=== PATIENT | male | born 1945 | race Caucasian/White ===

== ENCOUNTER 2017-05-31 18:18 | Emergency (ER) | payer MEDICARE, MEDICAID ==
[~2017-05-31] VITALS: Ht 190.5 cm; Wt 155.0 kg
[2017-05-31 18:25] VITALS: BP 172/99; PULSE 94; RESP 18; O2SAT 99
[2017-05-31 18:27] VITALS: TEMP 98.2; O2SAT 97
[2017-05-31 18:29] VITALS: O2SAT 97
--- NOTE | 2017-05-31 18:34 | PD ---
HPI Chief Complaint: Chest Pain Time Seen by Provider: 18:27 Travel History International Travel<30 days: No Contact w/Intl Traveler<30days: No History of Present Illness HPI 71-year-old male complains of chest pain and shortness of breath. Patient states that the symptoms started yesterday. Patient states the pain is substernal chest pressure without radiation. Patient denies palpitation nausea diaphoresis. Patient denies any coughing congestion fever chills. Patient states that he has increasing low Stram is a swelling recently. Patient has history of CHF. Patient has history hypertension, diabetes, hyperlipidemia. Patient is a nonsmoker. Patient status post VT in the past. Patient states that he has not taken any medication for the past month. Patient denies any headache. Patient denies any visual change. Patient denies any neck pain. Patient denies any abdominal pain. Patient denies any nausea vomiting diarrhea. Patient denies any fever chills. PFSH Social History Tobacco Use: No Allergies-Medications (Allergen,Severity, Reaction): Coded Allergies: nitroglycerin (Verified Allergy, Severe, 05/31/17) Reported Meds & Prescriptions Reported Meds & Active Scripts Active Active Prescriptions or Reported Medications Unobtainable Review of Systems General / Constitutional: No: Fever Eyes: No: Visual changes HENT: No: Headaches Cardiovascular: Positive: Chest Pain or Discomfort Respiratory: Positive: Shortness of Breath Gastrointestinal: No: Abdominal Pain Genitourinary: No: Dysuria Musculoskeletal: No: Pain Skin: No Rash Neurologic: No: Weakness Psychiatric: No: Depression Endocrine: No: Polydipsia Hematologic/Lymphatic: No: Easy Bruising Physical Exam Narrative GENERAL: Well-nourished, well-developed patient. SKIN: Focused skin assessment warm/dry. HEAD: Normocephalic. EYES: No scleral icterus. No injection or drainage. NECK: Supple, trachea midline. No JVD or lymphadenopathy. CARDIOVASCULAR: Regular rate and rhythm without murmurs, gallops, or rubs. RESPIRATORY: Breath sounds equal bilaterally. No accessory muscle use. Patient has mild rhonchi at the bases. GASTROINTESTINAL: Abdomen soft, non-tender, nondistended. MUSCULOSKELETAL: No cyanosis. Patient had +2 to +3 pitting edema lower extremity. BACK: Nontender without obvious deformity. No CVA tenderness. neurologic exam normal. Data Data Last Documented VS Vital Signs Date Time Temp Pulse Resp B/P (MAP) Pulse Ox O2 Delivery O2 Flow Rate FiO2 05/31/17 18:29 97 Nasal Cannula 2.00 05/31/17 18: 98.2 05/31/17 18:25 94 18 172/99 (123) Orders Orders Electrocardiogram (05/31/17 18:27) Complete Blood Count With Diff (05/31/17 18:) Comprehensive Metabolic Panel (05/31/17 18) Creatine Kinase (Cpk) (05/31/17 18) Troponin I (05/31/17) B-Type Natriuretic Peptide (05/31/17 18) Prothrombin Time / Inr (Pt) (05/31/17) Act Partial Throm Time (Ptt) (05/31/17) Urinalysis - C+S If Indicated (05/31/17 18) Thyroid Stimulating Hormone (05/31/17 18:) Chest, Single Ap (05/31/17 18:) Iv Access Insert/Monitor (05/31/17) Ecg Monitoring (05/31/17 18:) Oximetry (05/31/17 18:27) Ed Discharge Order (05/31/17 19:46) Urine Culture (05/31/17 19:15) Labs Laboratory Tests Test 05/31/17 18:32 05/31/17 19:15 White Blood Count 4.4 TH/MM3 Red Blood Count 4.83 MIL/MM3 Hemoglobin 14.5 GM/DL Hematocrit 42.3 % Mean Corpuscular Volume 87.4 FL Mean Corpuscular Hemoglobin 30.0 PG Mean Corpuscular Hemoglobin Concent 34.3 % Red Cell Distribution Width 13.5 % Platelet Count 117 TH/MM3 Mean Platelet Volume 9.4 FL Neutrophils (%) (Auto) 60.8 % Lymphocytes (%) (Auto) 25.8 % Monocytes (%) (Auto) 8.4 % Eosinophils (%) (Auto) 4.0 % Basophils (%) (Auto) 1.0 % Neutrophils # (Auto) 2.7 TH/MM3 Lymphocytes # (Auto) 1.1 TH/MM3 Monocytes # (Auto) 0.4 TH/MM3 Eosinophils # (Auto) 0.2 TH/MM3 Basophils # (Auto) 0.0 TH/MM3 CBC Comment DIFF FINAL Differential Comment Prothrombin Time 10.5 SEC Prothromb Time International Ratio 1.0 RATIO Activated Partial Thromboplast Time 25.9 SEC Blood Urea Nitrogen 12 MG/DL Creatinine 1.34 MG/DL Random Glucose 343 MG/DL Total Protein 7.3 GM/DL Albumin 3.1 GM/DL Calcium Level 8.2 MG/DL Alkaline Phosphatase 176 U/L Aspartate Amino Transf (AST/SGOT) 22 U/L Alanine Aminotransferase (ALT/SGPT) 25 U/L Total Bilirubin 0.6 MG/DL Sodium Level 135 MEQ/L Potassium Level 3.8 MEQ/L Chloride Level 102 MEQ/L Carbon Dioxide Level 26.8 MEQ/L Anion Gap 6 MEQ/L Estimat Glomerular Filtration Rate 53 ML/MIN Total Creatine Kinase 46 U/L Troponin I LESS THAN 0.02 NG/ML B-Type Natriuretic Peptide 33 PG/ML Thyroid Stimulating Hormone 3rd Gen 3.200 uIU/ML Urine Color YELLOW Urine Turbidity CLEAR Urine pH 5.0 Urine Specific [place] 1.031 Urine Protein NEG mg/dL Urine Glucose (UA) 1000 mg/dL Urine Ketones NEG mg/dL Urine Occult Blood NEG Urine Nitrite NEG Urine Bilirubin NEG Urine Urobilinogen LESS THAN 2.0 MG/DL Urine Leukocyte Esterase LARGE Urine RBC 0-3 /hpf Urine WBC 6-8 /hpf Urine Squamous Epithelial Cells 0-5 /hpf Urine Bacteria MANY /hpf Microscopic Urinalysis Comment CULTURE INDICATED MDM Medical Decision Making Medical Screen Exam Complete: Yes Emergency Medical Condition: Yes Differential Diagnosis Differential diagnosis including angina, VT, PE, pneumothorax, acute exacerbation CHF. Narrative Course 71-year-old male with chest pain and shortness of breath. History VT and CHF. Patient has not taken his medications for the past month. Scripts Unable to Obtain Active Prescriptions or Reported Meds Jarret Guerrero MD May 31, 2017 18:34
[2017-05-31 18:49] LABS: AUTOMATED NEUTROPHIL # 2.7 TH/MM3 (1.8-7.7); EOSINOPHIL # 0.2 TH/MM3 (0-0.4); HEMATOCRIT 42.3 % (39.0-51.0); HEMO FLAGS DIFF FINAL; LYMPH % 25.8 % (9.0-44.0); LYMPHOCYTE # 1.1 TH/MM3 (1.0-4.8); MEAN CELL VOLUME 87.4 FL (80.0-100.0); MEAN CORPUSCULAR HGB CONC 34.3 % (32.0-36.0); MONO % 8.4 % (0.0-8.0); NEUT % 60.8 % (16.0-70.0); PLATELET COUNT 117 TH/MM3 (150-450); RED BLOOD COUNT 4.83 MIL/MM3 (4.50-5.90); RED CELL DISTRIBUTION WIDTH 13.5 % (11.6-17.2); WHITE BLOOD COUNT 4.4 TH/MM3 (4.0-11.0)
--- NOTE | 2017-05-31 18:54 | RADRPT ---
EXAM DATE/TIME: 05/31/2017 18:36 [facility] COMPARISON: No previous studies available for comparison. INDICATIONS : Shortness of breath. MEDICAL HISTORY : None. SURGICAL HISTORY : None. ENCOUNTER: Initial ACUITY: 1 day PAIN SCORE: 0/10 LOCATION: Bilateral chest FINDINGS: A single view of the chest demonstrates the lungs to be symmetrically aerated without evidence of mas s, infiltrate or effusion. The cardiomediastinal contours are unremarkable. Osseous structures are intact. CONCLUSION: No acute disease. Patel Lockhart MD on May 31, 2017 at 18:52 Board Certified Radiologist. This report was verified electronically.
[2017-05-31 19:05] LABS: APTT (PATIENT) 25.9 SEC (24.3-30.1); PROTHROMBIN TIME - PATIENT 10.5 SEC (9.8-11.6)
[2017-05-31 19:07] LABS: ALT (GPT) 25 U/L (12-78)
[2017-05-31 19:11] LABS: ANION GAP 6 MEQ/L (5-15); AST (GOT) 22 U/L (15-37); BICARBONATE 26.8 MEQ/L (21.0-32.0); BLOOD UREA NITROGEN 12 MG/DL (7-18); CHLORIDE 102 MEQ/L (98-107); GLOMERULAR FILTRATION RATE 53 ML/MIN (>89); POTASSIUM 3.8 MEQ/L (3.5-5.1); SODIUM (NA) 135 MEQ/L (136-145)
[2017-05-31 19:17] LABS: ALKALINE PHOSPHATASE 176 U/L (45-117); TOTAL BILIRUBIN ADULT 0.6 MG/DL (0.2-1.0)
[2017-05-31 19:29] LABS: CREATINE KINASE 46 U/L (39-308)
--- NOTE | 2017-05-31 19:50 | PD ---
Data Data Last Documented VS Vital Signs Date Time Temp Pulse Resp B/P (MAP) Pulse Ox O2 Delivery O2 Flow Rate FiO2 05/31/17 18:29 97 Nasal Cannula 2.00 05/31/17 18: 98.2 05/31/17 18:25 94 18 172/99 (123) Orders Orders Electrocardiogram (05/31/17 18:27) Complete Blood Count With Diff (05/31/17 18:) Comprehensive Metabolic Panel (05/31/17) Creatine Kinase (Cpk) (05/31/17) Troponin I (05/31/17) B-Type Natriuretic Peptide (05/31/17) Prothrombin Time / Inr (Pt) (05/31/17) Act Partial Throm Time (Ptt) (05/31/17) Urinalysis - C+S If Indicated (05/31/17 18) Thyroid Stimulating Hormone (05/31/17 18) Chest, Single Ap (05/31/17:) Iv Access Insert/Monitor (05/31/17) Ecg Monitoring (05/31/17) Oximetry (05/31/17 18:) Ed Discharge Order (05/31/17 19:46) Labs Laboratory Tests Test 05/31/17 18:32 White Blood Count 4.4 TH/MM3 Red Blood Count 4.83 MIL/MM3 Hemoglobin 14.5 GM/DL Hematocrit 42.3 % Mean Corpuscular Volume 87.4 FL Mean Corpuscular Hemoglobin 30.0 PG Mean Corpuscular Hemoglobin Concent 34.3 % Red Cell Distribution Width 13.5 % Platelet Count 117 TH/MM3 Mean Platelet Volume 9.4 FL Neutrophils (%) (Auto) 60.8 % Lymphocytes (%) (Auto) 25.8 % Monocytes (%) (Auto) 8.4 % Eosinophils (%) (Auto) 4.0 % Basophils (%) (Auto) 1.0 % Neutrophils # (Auto) 2.7 TH/MM3 Lymphocytes # (Auto) 1.1 TH/MM3 Monocytes # (Auto) 0.4 TH/MM3 Eosinophils # (Auto) 0.2 TH/MM3 Basophils # (Auto) 0.0 TH/MM3 CBC Comment DIFF FINAL Differential Comment Prothrombin Time 10.5 SEC Prothromb Time International Ratio 1.0 RATIO Activated Partial Thromboplast Time 25.9 SEC Blood Urea Nitrogen 12 MG/DL Creatinine 1.34 MG/DL Random Glucose 343 MG/DL Total Protein 7.3 GM/DL Albumin 3.1 GM/DL Calcium Level 8.2 MG/DL Alkaline Phosphatase 176 U/L Aspartate Amino Transf (AST/SGOT) 22 U/L Alanine Aminotransferase (ALT/SGPT) 25 U/L Total Bilirubin 0.6 MG/DL Sodium Level 135 MEQ/L Potassium Level 3.8 MEQ/L Chloride Level 102 MEQ/L Carbon Dioxide Level 26.8 MEQ/L Anion Gap 6 MEQ/L Estimat Glomerular Filtration Rate 53 ML/MIN Total Creatine Kinase 46 U/L Troponin I LESS THAN 0.02 NG/ML B-Type Natriuretic Peptide 33 PG/ML Thyroid Stimulating Hormone 3rd Gen 3.200 uIU/ML [facility] Medical Record Reviewed: Yes Supervised Visit with YASHIRA: No Narrative Course Please refer to their regular provider documentation. The workup today is essentially normal although the patient is somewhat hyperglycemic. Results are as follows, BNP is 30 Troponin is less than 0.02 Last 24 hours Impressions Chest X-Ray 05/31/177 Signed Impressions: Service Date/Time: Wednesday, May 31, 2017 18:36 - CONCLUSION: No acute disease. Patel Lockhart MD CBC & BMP Diagram 05/31/17 18:32 Total Protein 7.3, Albumin 3.1 L, Calcium Level 8.2 L, Alkaline Phosphatase 176 H, Aspartate Amino Transf (AST/SGOT) 22, Alanine Aminotransferase (ALT/SGPT) 25 , Total Bilirubin 0.6 Patient had a time reassessment states that he needs medication refills however the rapid heart rate typically obtains them as closed right now. Since there is no significant laboratory abnormality and clinically the patient appears quite well he is okay for discharge home with a plan to follow up with the [facility] tomorrow. He states he'll try to call and obtain his prescription list from his [facility] pharmacy in the morning. Diagnosis Primary Impression: Hyperglycemia Additional Impression: Encounter for medication refill Referrals: [facility] 1 day Med/Other Pt SpecificInfo: No Change to Meds Scripts Unable to Obtain Active Prescriptions or Reported Meds Disposition: DISCHARGE HOME Condition: Stable Leon Gonzalez MD May 31, 2017 19:50
[2017-05-31 20:09] LABS: BLOOD, URINE NEG (NEG); GLUCOSE,URINE 1000 mg/dL (NEG); KETONE, URINE NEG (NEG); NITRITE,URINE NEG (NEG); URINE COLOR YELLOW (YELLW/STRAW)
[2017-05-31 20:35] LABS: BACTERIA, URINE MANY /hpf; COMMENT (UR) CULTURE INDICATED; CULTURE IF INDICATED CULTURE INDICATED; RBC, URINE 0-3 /hpf (0-3); SQUAMOUS EPITHELIAL CELL URINE 0-5 /hpf (0-5)
--- NOTE | 2017-06-01 18:55 | EKG ---
Date Performed: 05/31/2017 Time Performed: 18:25:41 PTAGE: 71 years EKG: Sinus rhythm PATTERN CONSISTENT WITH PULMONARY DISEASE LEFT ANTERIOR FASCICULAR BLOCK Consider SEPTAL MYOCARDIAL INFARCTION-age undeterminate. ABNORMAL ECG NO PREVIOUS TRACING DOCTOR: Wali Kirkland Interpretating Date/Time 06/01/2017 18:54:55
== END 2017-05-31 20:08 | disposition home or self-care (01) ==
LOC: NEPC 18:18
DX: E11.65 Type 2 diabetes mellitus with hyperglycemia (principal); R06.02 Shortness of breath; R07.89 Other chest pain; B96.89 Other specified bacterial agents as the cause of diseases classified elsewhere; I11.0 Hypertensive heart disease with heart failure; I50.9 Heart failure, unspecified; E78.5 Hyperlipidemia, unspecified; I44.4 Left anterior fascicular block; R94.31 Abnormal electrocardiogram [ECG] [EKG]
CPT/HCPCS: 71010; 80053; 81001; 82550; 83880; 84443; 84484; 85025; 85610; 85730; 87086; 93005; 99285

== ENCOUNTER 2017-11-19 20:28 | Observation (INO) | payer OTHER, MEDICAID ==
[~2017-11-19] VITALS: Ht 190.5 cm; Wt 163.4 kg
[2017-11-19 20:48] VITALS: PULSE 108; RESP 24; TEMP 98.9; O2SAT 97
[2017-11-19] MEDS ORDERED: ASPIRIN 81 MG CHEW TAB PO ONE (21:00)
[2017-11-19] MEDS ORDERED: SODIUM CHLORIDE 0.9% FLUSH 10 ML FLUSH IVF PRN (21:00)
[2017-11-19] MEDS ORDERED: KETOROLAC TROMETHAMINE 30 MG/ML (IVP) VIAL IV PUSH ONE (21:15)
--- NOTE | 2017-11-19 21:30 | RADRPT ---
EXAM DATE/TIME: 11/19/2017 21:10 [facility] COMPARISON: CHEST SINGLE AP, May 31, 2017, 18:36. INDICATIONS : Chest pain MEDICAL HISTORY : Cardiovascular disease. SURGICAL HISTORY : None. ENCOUNTER: Initial ACUITY: 1 day PAIN SCORE: 4/10 LOCATION: Bilateral chest FINDINGS: A single view of the chest demonstrates left basilar density. Right lung clear. Heart mildly enlarged . The cardiomediastinal contours are unremarkable. Osseous structures are intact. CONCLUSION: Stable left basilar density likely scarring. Wu Lozano MD on November 19, 2017 at 21:27 Board Certified Radiologist. This report was verified electronically.
[2017-11-19 21:31] LABS: AUTOMATED NEUTROPHIL # 3.9 TH/MM3 (1.8-7.7); BASOPHIL % 0.7 % (0.0-2.0); EOSINOPHIL # 0.2 TH/MM3 (0-0.4); EOSINOPHIL % 2.8 % (0.0-4.0); HEMATOCRIT 42.2 % (39.0-51.0); HEMOGLOBIN 14.6 GM/DL (13.0-17.0); LYMPH % 23.2 % (9.0-44.0); LYMPHOCYTE # 1.4 TH/MM3 (1.0-4.8); MEAN CELL VOLUME 85.6 FL (80.0-100.0); MEAN CORPUSCULAR HEMOGLOBIN 29.6 PG (27.0-34.0); MEAN CORPUSCULAR HGB CONC 34.5 % (32.0-36.0); MEAN PLATELET VOLUME 9.1 FL (7.0-11.0); MONO % 9.6 % (0.0-8.0); MONOCYTE # 0.6 TH/MM3 (0-0.9); NEUT % 63.7 % (16.0-70.0); PLATELET COUNT 148 TH/MM3 (150-450); RED BLOOD COUNT 4.93 MIL/MM3 (4.50-5.90); RED CELL DISTRIBUTION WIDTH 13.5 % (11.6-17.2); WHITE BLOOD COUNT 6.1 TH/MM3 (4.0-11.0)
[2017-11-19 21:52] LABS: ALT (GPT) 20 U/L (12-78)
[2017-11-19 22:00] LABS: PROTHROMBIN TIME - PATIENT 10.5 SEC (9.8-11.6)
[2017-11-19 22:07] LABS: ALBUMIN 3.3 GM/DL (3.4-5.0); ALKALINE PHOSPHATASE 139 U/L (45-117); AST (GOT) 17 U/L (15-37); BICARBONATE 25.6 MEQ/L (21.0-32.0); BLOOD UREA NITROGEN 18 MG/DL (7-18); CHLORIDE 102 MEQ/L (98-107); CREATININE 1.28 MG/DL (0.60-1.30); GLOMERULAR FILTRATION RATE 56 ML/MIN (>89); GLUCOSE,RANDOM 208 MG/DL (74-106); MAGNESIUM 1.9 MG/DL (1.5-2.5); SODIUM (NA) 138 MEQ/L (136-145); TOTAL BILIRUBIN ADULT 0.7 MG/DL (0.2-1.0); TOTAL PROTEIN 7.2 GM/DL (6.4-8.2); TROPONIN I LESS THAN 0.02 NG/ML (0.02-0.05)
--- NOTE | 2017-11-19 22:12 | PD ---
HPI Chief Complaint: Chest Pain Time Seen by Provider: 20:56 Travel History International Travel<30 days: No Contact w/Intl Traveler<30days: No Traveled to known affect area: No History of Present Illness HPI 72-year-old male presents to the emergency department from home by EMS transport for evaluation of chest pain. Patient rates his chest pain 8/10 in intensity. Patient states his chest pain has been constant all day and has not changed in intensity. Patient states pain radiates into his left upper extremity. Patient states he has had some mild shortness of breath and some low back pain. Patient denies any sweats nausea vomiting neck jaw shoulder or mid scapular pain. Patient reports 1 month ago he had a myocardial infarction and was managed here on the third floor. [facility] Social History Alcohol Use: No Tobacco Use: No Substance Use: No Allergies-Medications (Allergen,Severity, Reaction): Coded Allergies: nitroglycerin (Verified Allergy, Severe, 05/31/17) Reported Meds & Prescriptions Reported Meds & Active Scripts Active Active Prescriptions or Reported Medications Unobtainable Data Data Last Documented VS Vital Signs Date Time Temp Pulse Resp B/P (MAP) Pulse Ox O2 Delivery O2 Flow Rate FiO2 11/19/17 23:12 98.4 75 19 133/63 (86) 96 Room Air 11/19/17 22:10 2.00 Orders Orders Electrocardiogram (11/19/17 20:56) B-Type Natriuretic Peptide (11/19/17 20:56) Ckmb (Isoenzyme) Profile (11/19/17 20:56) Complete Blood Count With Diff (11/19/17 20:56) Comprehensive Metabolic Panel (11/19/17 20:56) Magnesium (Mg) (11/19/17 20:56) Prothrombin Time / Inr (Pt) (11/19/17 20:56) Act Partial Throm Time (Ptt) (11/19/17 20:56) Troponin I (11/19/17 20:56) Ecg Monitoring (11/19/17 20:56) Bilateral Bp Monitoring (11/19/17 20:56) Iv Access Insert/Monitor (11/19/17 20:56) Oximetry (11/19/17 20:56) Oxygen Administration (11/19/17 20:56) Aspirin Chew (Aspirin Chew) (11/19/17 21:00) Sodium Chloride 0.9% Flush (Ns Flush) (11/19/17 21:00) Lactic Acid (11/19/17 20:56) Chest, Single Ap (11/19/17 ) Blood Culture (11/19/17 20:56) Ketorolac Inj (Toradol Inj) (11/19/17 21:15) D-Dimer (11/19/17 22:18) Labs Laboratory Tests Test 11/19/17 21:00 11/19/17 21:03 Prothrombin Time 10.5 SEC Prothromb Time International Ratio 1.0 RATIO Activated Partial Thromboplast Time 26.4 SEC D-Dimer Quantitative (PE/DVT) 0.45 MG/L FEU Blood Urea Nitrogen 18 MG/DL Creatinine 1.28 MG/DL Random Glucose 208 MG/DL Total Protein 7.2 GM/DL Albumin 3.3 GM/DL Calcium Level 9.0 MG/DL Magnesium Level 1.9 MG/DL Alkaline Phosphatase 139 U/L Aspartate Amino Transf (AST/SGOT) 17 U/L Alanine Aminotransferase (ALT/SGPT) 20 U/L Total Bilirubin 0.7 MG/DL Sodium Level 138 MEQ/L Potassium Level 3.9 MEQ/L Chloride Level 102 MEQ/L Carbon Dioxide Level 25.6 MEQ/L Anion Gap 10 MEQ/L Estimat Glomerular Filtration Rate 56 ML/MIN Lactic Acid Level 1.7 mmol/L Total Creatine Kinase 38 U/L Troponin I LESS THAN 0.02 NG/ML White Blood Count 6.1 TH/MM3 Red Blood Count 4.93 MIL/MM3 Hemoglobin 14.6 GM/DL Hematocrit 42.2 % Mean Corpuscular Volume 85.6 FL Mean Corpuscular Hemoglobin 29.6 PG Mean Corpuscular Hemoglobin Concent 34.5 % Red Cell Distribution Width 13.5 % Platelet Count 148 TH/MM3 Mean Platelet Volume 9.1 FL Neutrophils (%) (Auto) 63.7 % Lymphocytes (%) (Auto) 23.2 % Monocytes (%) (Auto) 9.6 % Eosinophils (%) (Auto) 2.8 % Basophils (%) (Auto) 0.7 % Neutrophils # (Auto) 3.9 TH/MM3 Lymphocytes # (Auto) 1.4 TH/MM3 Monocytes # (Auto) 0.6 TH/MM3 Eosinophils # (Auto) 0.2 TH/MM3 Basophils # (Auto) 0.0 TH/MM3 CBC Comment DIFF FINAL Differential Comment MDM Medical Decision Making Medical Screen Exam Complete: Yes Emergency Medical Condition: Yes Medical Record Reviewed: Yes Interpretation(s) Troponin I: Less than 0.02, not elevated Lactic acid: 1.7, not elevated Last Impressions Chest X-Ray 11/19/17 0000 Signed Impressions: Service Date/Time: , November 19, 2017 21:10 - CONCLUSION: Stable left basilar density likely scarring. Wu Lozano MD CBC & BMP Diagram 11/19/17 21:00 Total Protein 7.2, Albumin 3.3 L, Calcium Level 9.0, Magnesium Level 1.9, Alkaline Phosphatase 139 H, Aspartate Amino Transf (AST/SGOT) 17, Alanine Aminotransferase (ALT/SGPT) 20, Total Bilirubin 0.7 11/19/17 21:03 Vital Signs Date Time Temp Pulse Resp B/P (MAP) Pulse Ox O2 Delivery O2 Flow Rate FiO2 11/19/17 22:10 98 Nasal Cannula 2.00 11/19/17 20:48 98.9 108 24 97 EKG sinus tachycardia rate 107 age-indeterminate anteroseptal [place] no acute ST elevation; artifact present at baseline d-dimer: 0.45, not elevated Differential Diagnosis Chest pain, cough, pleuritic chest pain, ACS, [place], PE, CHF, pneumonia Narrative Course Patient placed on lunchroom monitor IV access obtained specimens collected and sent for resulting patient had received aspirin prior to arrival to the emergency department patient reports allergy to nitroglycerin causes severe vomiting and refuses any nitroglycerin at this time. Patient placed on supplemental oxygen for symptomatic relief Patient resting comfortably daughter at bedside reports patient was managed for myocardial infarction at [facility] sometime within the past 2-3 months. Sepsis Criteria SIRS Criteria (2 or more): Heart rate over 90, RR > 20 or PaCO2 < 32 Diagnosis Primary Impression: Chest pain Scripts Unable to Obtain Active Prescriptions or Reported Meds Samantha Rockwell MD November 19, 2017 22:12
[2017-11-19 23:12] VITALS: BP 133/63; PULSE 75; RESP 19; TEMP 98.4; O2SAT 96
[2017-11-19] MEDS ORDERED: GABA300C5 PO (23:36)
[2017-11-19] MEDS ORDERED: LISI-515 PO (23:36)
[2017-11-19] MEDS ORDERED: TRAD5TAB PO (23:36)
[2017-11-19] MEDS ORDERED: DULO1CAP2 PO (23:36)
[2017-11-19] MEDS ORDERED: COLC1CAP3 PO (23:36)
[2017-11-19] MEDS ORDERED: CARV25TA PO (23:36)
[2017-11-19] MEDS ORDERED: VITA200013 PO (23:36)
[2017-11-19] MEDS ORDERED: METF1000 PO (23:36)
[2017-11-20] VITALS (13 sets, daily range): BP systolic 112–171; BP diastolic 55–91; PULSE 65–76; RESP 14–18; TEMP 97.7–98; O2SAT 93–99
[2017-11-20] MEDS ORDERED: SODIUM CHLORIDE 0.9% FLUSH 10 ML FLUSH IV FLUSH PRN (01:00)
[2017-11-20] MEDS ORDERED: ALPRAZolam 0.25 MG TAB PO PRN (01:00)
[2017-11-20] MEDS ORDERED: ONDANSETRON ODT 4 MG TAB PO PRN (01:15)
[2017-11-20 03:03] LABS: TROPONIN I LESS THAN 0.02 NG/ML (0.02-0.05)
[2017-11-20 06:32] LABS: TROPONIN I LESS THAN 0.02 NG/ML (0.02-0.05)
--- NOTE | 2017-11-20 07:43 | HHI.HP ---
HPI Primary Care Physician [place], [place] Chief Complaint Chest pain History of Present Illness 72-year-old male with history of coronary artery disease, type 2 diabetes and hypertension presents the emergency room for further evaluation of chest pain. Onset "last evening" unable to give approximate time. Location left anterior chest. Characterized as sharp pain. No radiation. Duration 10-15 minutes. No associated symptoms of nausea, vomiting, dyspnea, or diaphoresis. No known precipitating or relieving factors. Endorses similar pain in the past, reporting a hospitalization at [facility] and had multiple "pictures taking" last month. Unable to provide details of recent hospitalization, reports being discharged on a "white pill." Apparently given the option of "having surgery or taking an additional medication." Unable to recall what type of surgery or why he needed the recommended surgery. No current chest pain. Record release form signed during evening shift, no records yet received. Review of Systems General: No fatigue,weakness, fever, chills. HEENT: No LEBRON CV: As stated above. No current chest pain. RESP: No SOB, cough, or wheeze. GI: No nausea, vomiting, or bowel changes : No dysuria, urgency, frequency MS: No discomfort or change in ROM NEURO: No change in memory, LOC, motor/sensory deficits PSYCH: No anxiety or depression SKIN: No rashes, no concerning lesions Past Family Social History Allergies: Coded Allergies: nitroglycerin (Verified Allergy, Severe, 05/31/17) Past Medical History Type 2 diabetes [id number], hypertension, coronary artery disease, 1 cardiac stent, morbidly obese Reported Medications Reported Meds & Active Scripts Active Reported Per Record (Patient unable to give names of medications-states "I gave nurse a list." Carvedilol 25 Mg Tab 25 Mg PO BID Tradjenta (Linagliptin) 5 Mg Tab 5 Mg PO DAILY Metformin (Metformin HCl) 1,000 Mg Tab 1,000 Mg PO BIDPC Lisinopril 20 Mg Tab 20 Mg PO BID Gabapentin 300 Mg Cap 300 Mg PO TID Colchicine 0.6 Mg Cap 0.6 Mg PO BID Vitamin D (Cholecalciferol) 2,000 Unit Cap 5,000 Units PO DAILY Duloxetine DR (Duloxetine HCl) 30 Mg Capdr 30 Mg PO DAILY Active Ordered Medications Current Medications Medications (Trade) Dose Ordered Sig/Sindy Route Start Time Stop Time Status Last Admin (NS Flush) 2 ml UNSCH PRN IV FLUSH 11/20/17 01:00 (NS Flush) 2 ml BID IV FLUSH 11/20/17 09:00 (Zofran Odt) 4 mg Q6H PRN PO 11/20/17 01:15 (Aspirin) 325 mg DAILY PO 11/20/17 09:00 (Xanax) 0.25 mg Q8H PRN PO 11/20/17 01:00 Social History Known type 2 diabetes and hypertension. No known hyperlipidemia or coronary artery disease. Nonsmoker. Retired. Has a son at bedside. Lives with son and son's girlfriend. Past cardiac testing September 2016 Lexiscan ([facility])-small area of mid to distal anterolateral ischemia. Cardiac catheterization 10 years ago reports one stent placed ([place]) Physical Exam Vital Signs Vital Signs Date Time Temp Pulse Resp B/P (MAP) Pulse Ox O2 Delivery O2 Flow Rate FiO2 11/20/17 07:00 68 16 97 Room Air 11/20/17 07:00 97.8 68 16 133/67 (89) 98 Room Air 11/20/17 07:00 97 Room Air 11/20/17 07:00 16 11/20/17 05:15 97 21.00 11/20/17 05:00 72 16 166/91 (116) 97 Room Air 11/20/17 04:00 66 14 171/74 (106) 97 Room Air 11/20/17 03:00 76 15 168/72 (104) 98 Room Air 11/19/17 23:12 98.4 75 19 133/63 (86) 96 Room Air 11/19/17 22:10 98 Nasal Cannula 2.00 11/19/17 20:48 98.9 108 24 97 Physical Exam GENERAL: Alert WN, WD, NAD, morbidly obese, elderly male HEAD: NC, AT CV: RRR, without murmur, rub, gallop, no JVD, S1-S2 no S3-S4. RESP: Clear lungs throughout bilateral, no crackles, wheeze, rhonchi, symmetrical chest rise, nonlabored, able to speak in full sentences ABD: Soft, NT, ND, obese, positive bowel tones EXT: Pulses +2x4, trace dependent edema, bilateral lower extremities cathy discoloration MS: Normal tone x4 extremities, no obvious deformities, full range of motion NEURO: CN II through CN XII grossly intact, motor strength 5/5 PSYCH: A+O x3, pleasant affect, appropriate speech, and mood. SKIN: Normal turgor, normal texture Laboratory Laboratory Tests Test 11/19/17 21:00 11/19/17 21:03 11/20/17 02:10 11/20/17 05:45 Prothrombin Time 10.5 Prothromb Time International Ratio 1.0 Activated Partial Thromboplast Time 26.4 D-Dimer Quantitative (PE/DVT) 0.45 Blood Urea Nitrogen 18 Creatinine 1.28 Random Glucose 208 Total Protein 7.2 Albumin 3.3 Calcium Level 9.0 Magnesium Level 1.9 Alkaline Phosphatase 139 Aspartate Amino Transf (AST/SGOT) 17 Alanine Aminotransferase (ALT/SGPT) 20 Total Bilirubin 0.7 Sodium Level 138 Potassium Level 3.9 Chloride Level 102 Carbon Dioxide Level 25.6 Anion Gap 10 Estimat Glomerular Filtration Rate 56 Lactic Acid Level 1.7 Total Creatine Kinase 38 33 26 Troponin I LESS THAN 0.02 LESS THAN 0.02 LESS THAN 0.02 White Blood Count 6.1 Red Blood Count 4.93 Hemoglobin 14.6 Hematocrit 42.2 Mean Corpuscular Volume 85.6 Mean Corpuscular Hemoglobin 29.6 Mean Corpuscular Hemoglobin Concent 34.5 Red Cell Distribution Width 13.5 Platelet Count 148 Mean Platelet Volume 9.1 Neutrophils (%) (Auto) 63.7 Lymphocytes (%) (Auto) 23.2 Monocytes (%) (Auto) 9.6 Eosinophils (%) (Auto) 2.8 Basophils (%) (Auto) 0.7 Neutrophils # (Auto) 3.9 Lymphocytes # (Auto) 1.4 Monocytes # (Auto) 0.6 Eosinophils # (Auto) 0.2 Basophils # (Auto) 0.0 CBC Comment DIFF FINAL Differential Comment B-Type Natriuretic Peptide 20 Date/Time Source Procedure Growth Status 11/19/17 21:15 Blood Peripheral Aerobic Blood Culture Pending Received 11/19/17 21:15 Blood Peripheral Anaerobic Blood Culture Pending Received Result Diagram: 11/19/17210211/19/17 2100 Imaging Last 48 hours Impressions Chest X-Ray 11/19/17 0000 Signed Impressions: Service Date/Time: November 21:10 - CONCLUSION: Stable left basilar density likely scarring. Wu Lozano MD Course EKG NSR, left anterior fascicular block Caprini VTE Risk Assessment Caprini VTE Risk Assessment: Mod/High Risk (score >= 2) Caprini Risk Assessment Model Point Value = 1 Point Value = 2 Point Value = 3 Point Value = 5 Age 41-60 Minor surgery BMI > 25 kg/m2 Swollen legs Varicose veins or History of unexplained or recurrent spontaneous Oral contraceptives or hormone replacement Sepsis (< 1 month) Serious lung disease, including pneumonia (< 1 month) Abnormal pulmonary function Acute myocardial infarction Congestive heart failure (< 1 month) History of inflammatory bowel disease Medical patient at bed rest Age 61-74 Arthroscopic surgery Major open surgery (> 45 min) Laparoscopic surgery (> 45 min) Malignancy Confined to bed (> 72 hours) Immobilizing plaster cast Central venous access Age >= 75 History of VTE Family history of VTE Factor V Leiden Prothrombin [id number] Lupus anticoagulant Anticardiolipin antibodies Elevated serum homocysteine Heparin-induced thrombocytopenia Other congenital or acquired thrombophilia Stroke (< 1 month) Elective arthroplasty Hip, pelvis, or leg fracture Acute spinal cord injury (< 1 month) Prophylaxis Regimen Total Risk Factor Score Risk Level Prophylaxis Regimen 0-1 Low Early ambulation 2 Moderate Order ONE of the following: *Sequential Compression Device (SCD) *Heparin 5000 units SQ BID 3-4 Higher Order ONE of the following medications: *Heparin 5000 units SQ TID *Enoxaparin/Lovenox 40 mg SQ daily (WT < 150 kg, CrCl > 30 mL/min) *Enoxaparin/Lovenox 30 mg SQ daily (WT < 150 kg, CrCl > 10-29 mL/min) *Enoxaparin/Lovenox 30 mg SQ BID (WT < 150 kg, CrCl > 30 mL/min) AND/OR *Sequential Compression Device (SCD) 5 or more Highest Order ONE of the following medications: *Heparin 5000 units SQ TID (Preferred with Epidurals) *Enoxaparin/Lovenox 40 mg SQ daily (WT < 150 kg, CrCl > 30 mL/min) *Enoxaparin/Lovenox 30 mg SQ daily (WT < 150 kg, CrCl > 10-29 mL/min) *Enoxaparin/Lovenox 30 mg SQ BID (WT < 150 kg, CrCl > 30 mL/min) AND *Sequential Compression Device (SCD) Assessment and Plan Assessment and Plan #1 Chest pain-admitted to chest pain center. Ruled out with 3 sets of EKGs and cardiac enzymes. Seen and evaluated by Dr Deion Martin. Will attempt to obtain medical records from recent hospitalization. #2 History of type II diabetes-hold metformin, SSI low dose coverage #3 History of hypertension-continue carvedilol and lisinopril [address] [facility], [facility] results suggest small area of mid to distal anterolateral ischemia. Dr. Martin called on-call sap pp consultant, Dr. Bolton, discussed case. Consult to Dr. Bolton will be placed. Patient made aware of plan of care. Patricia Giles November 20, 2017 07:43
[2017-11-20] MEDS: SODIUM CHLORIDE 0.9% FLUSH 10 ML FLUSH IV FLUSH SCH ×2 (08:16→21:11)
[2017-11-20] MEDS ORDERED: ACETAMINOPHEN 500 MG CPLT PO PRN (08:30)
[2017-11-20] MEDS ORDERED: GLUCAGON 1 MG/ML VIAL OTHER PRN (08:45)
[2017-11-20] MEDS ORDERED: DEXTROSE 50% IN WATER 50 ML VIAL(D50) IV PUSH PRN (08:45)
[2017-11-20] MEDS: CARVEDILOL 12.5 MG TAB PO SCH ×2 (08:55→21:11)
[2017-11-20] MEDS: LISINOPRIL 20 MG TAB PO SCH ×2 (08:55→21:11)
[2017-11-20] MEDS ORDERED: ASPIRIN 325 MG TAB PO SCH ×2 (09:00)
[2017-11-20] MEDS: amLODIPine BESYLATE 5 MG TAB PO SCH (09:45)
--- NOTE | 2017-11-20 10:03 | MB ---
cc: Aaron Bolton MD DATE: 11/20/2017 REASON FOR CONSULTATION: Evaluation of chest pain. HISTORY OF PRESENT ILLNESS: Sloan Plata is a 72-year-old man who comes into the hospital with complaints of chest pain. It is not clear who his providers are. He moved here from [place]. It sounds like he has very limited financial resources. Neither he or his daughter have a car and they have trouble getting medications picked up. He was hospitalized at [facility]. He really cannot tell us much anything about what was done there, but records have been obtained of his nuclear stress test there, which showed a small area of mid to distal anterolateral ischemia. The patient is quite sedentary. He does not walk very much. He is morbidly obese. Yesterday at around 8 in the evening, he had an episode of chest pain. He says his son said that he was unresponsive for a little while and his sugar was low. It is the first time he has had chest pain in awhile. He says he had a stent about 10 years ago up in [place]. He gets pain in the left parasternal region at rest, but only has it about once every few months. He has had no further pain since the episode last night and he has ruled out for an KS. He has got multiple risk factors for coronary artery disease; he is morbidly obese, has diabetes and hypertension. His lipid status is unknown. I do not see any lipid-lowering medications on his medication list. PAST MEDICAL HISTORY: Includes hypertension, diabetes, coronary artery disease, previous stent. ALLERGIES: He says he cannot take because it causes nausea and vomiting. SOCIAL HISTORY: Never smoked, drinks only occasional beer. 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 He is . He has a daughter. FAMILY HISTORY: Positive for heart disease. REVIEW OF SYSTEMS: Otherwise negative. PHYSICAL EXAMINATION: GENERAL: Morbidly obese, pleasant white male in no acute distress. VITAL SIGNS: Charted. He has had some intermittent hypertension, particularly when he first came in. HEENT: Unremarkable. NECK: No JVD. No bruits. CHEST: Clear to auscultation. CARDIOVASCULAR: S1, S2. Regular rate and rhythm. No murmurs or gallops. ABDOMEN: The abdomen is severely obese. Cannot appreciate organomegaly. EXTREMITIES: Show intact radial and pedal pulses. He does have mild lower extremity edema with severe hemosiderosis changes from venous insufficiency. EKG shows sinus rhythm, PACs, left anterior fascicular block. LABORATORY DATA: Creatinine is 1.28. Cardiac enzymes are negative. IMPRESSION: A 72-year-old man with known coronary artery disease, multiple risk factors, uncontrolled obesity, comes in with an episode of chest pain and is ruled out for an myocardial infarction. He has had a previous abnormal nuclear stress test. RECOMMENDATIONS: I told him preferred approach at this point would be to proceed with a cardiac catheterization. Alternatively, we could adjust his medications. I explained to him there are risks no matter what we do, but with the previous abnormal stress test and him having chest pain at rest, that heart catheterization would be my first choice. He would prefer to be treated medically. He understands there is a risk of heart attack. I am adding amlodipine 5 mg daily to his medical regimen. I am adding atorvastatin 40 mg to his medical regimen. I am writing an order for aspirin since that has not been continued. We will continue the carvedilol and lisinopril. If he changes his mind, I am willing to do his heart catheterization today. If not, he can be discharged home within 24 hours on medications. Thank you very much for asking me to see him. MD KAROL Dumont/IWONA , 09:37 AM , 10:03 AM
[2017-11-20 10:46] LABS: CHOLESTEROL/ HDL RATIO 4.95 RATIO; HDL CHOLESTEROL 31.9 MG/DL (40.0-60.0)
[2017-11-20] MEDS: INSULIN ASPART SUPPLEMENTAL SCALE SQ SCH ×3 (11:50→21:11)
--- NOTE | 2017-11-20 12:27 | PD.CARD.PN ---
Subjective Subjective Remarks Continues to be reluctant and unable to make a decision, states "most likely I will have in morning, I just need more time to think about it and eat some food. " States he is under a lot of family stress. Objective Medications Current Medications Medications (Trade) Dose Ordered Sig/Sindy Route Start Time Stop Time Status Last Admin (NS Flush) 2 ml UNSCH PRN IV FLUSH 11/20/17 01:00 (NS Flush) 2 ml BID IV FLUSH 11/20/17 09:00 11/20/17 08:16 (Zofran Odt) 4 mg Q6H PRN PO 11/20/17 01:15 (Xanax) 0.25 mg Q8H PRN PO 11/20/17 01:00 (Tylenol) 500 mg Q4H PRN PO 11/20/17 08:30 (Coreg) 25 mg BID PO 11/20/17 09:00 11/20/17 08:55 (Prinivil) 20 mg BID PO 11/20/17 09:00 11/20/17 08:55 (D50w (Vial) Inj) 50 ml UNSCH PRN IV PUSH 11/20/17 08:45 (Glucagon Inj) 1 mg UNSCH PRN OTHER 11/20/17 08:45 (NovoLOG SUPPLEMENTAL SCALE) 1 ACHS SLIDING SCALE SQ 11/20/17 12:00 (Norvasc) 5 mg DAILY PO 11/20/17 09:30 11/20/17 09:45 (Ecotrin Ec) 162 mg DAILY PO 11/21/17 09:00 (Lipitor) 40 mg DAILY PO 11/21/17 09:00 Vital Signs / I&O Vital Signs Date Time Temp Pulse Resp B/P (MAP) Pulse Ox O2 Delivery O2 Flow Rate FiO2 11/20/17 09:46 73 17 142/60 (87) 96 Room Air 11/20/17 08:16 97.7 74 146/84 (104) 98 Room Air 11/20/17 07:59 99 21 11/20/17 07:00 68 16 97 Room Air 11/20/17 07:00 97.8 68 16 133/67 (89) 98 Room Air 11/20/17 07:00 97 Room Air 11/20/17 07:00 16 11/20/17 05:15 97 21.00 11/20/17 05:00 72 16 166/91 (116) 97 Room Air 11/20/17 04:00 66 14 171/74 (106) 97 Room Air 11/20/17 03:00 76 15 168/72 (104) 98 Room Air 11/19/17 23:12 98.4 75 19 133/63 (86) 96 Room Air 11/19/17 22:10 98 Nasal Cannula 2.00 11/19/17 20:48 98.9 108 24 97 Laboratory Laboratory Tests Test 11/19/17 21:00 11/19/17 21:03 11/20/17 02:10 11/20/17 05:45 Prothrombin Time 10.5 SEC Prothromb Time International Ratio 1.0 RATIO Activated Partial Thromboplast Time 26.4 SEC D-Dimer Quantitative (PE/DVT) 0.45 MG/L FEU Blood Urea Nitrogen 18 MG/DL Creatinine 1.28 MG/DL Random Glucose 208 MG/DL Total Protein 7.2 GM/DL Albumin 3.3 GM/DL Calcium Level 9.0 MG/DL Magnesium Level 1.9 MG/DL Alkaline Phosphatase 139 U/L Aspartate Amino Transf (AST/SGOT) 17 U/L Alanine Aminotransferase (ALT/SGPT) 20 U/L Total Bilirubin 0.7 MG/DL Sodium Level 138 MEQ/L Potassium Level 3.9 MEQ/L Chloride Level 102 MEQ/L Carbon Dioxide Level 25.6 MEQ/L Anion Gap 10 MEQ/L Estimat Glomerular Filtration Rate 56 ML/MIN Lactic Acid Level 1.7 mmol/L Total Creatine Kinase 38 U/L 33 U/L 26 U/L Troponin I LESS THAN 0.02 NG/ML LESS THAN 0.02 NG/ML LESS THAN 0.02 NG/ML White Blood Count 6.1 TH/MM3 Red Blood Count 4.93 MIL/MM3 Hemoglobin 14.6 GM/DL Hematocrit 42.2 % Mean Corpuscular Volume 85.6 FL Mean Corpuscular Hemoglobin 29.6 PG Mean Corpuscular Hemoglobin Concent 34.5 % Red Cell Distribution Width 13.5 % Platelet Count 148 TH/MM3 Mean Platelet Volume 9.1 FL Neutrophils (%) (Auto) 63.7 % Lymphocytes (%) (Auto) 23.2 % Monocytes (%) (Auto) 9.6 % Eosinophils (%) (Auto) 2.8 % Basophils (%) (Auto) 0.7 % Neutrophils # (Auto) 3.9 TH/MM3 Lymphocytes # (Auto) 1.4 TH/MM3 Monocytes # (Auto) 0.6 TH/MM3 Eosinophils # (Auto) 0.2 TH/MM3 Basophils # (Auto) 0.0 TH/MM3 CBC Comment DIFF FINAL Differential Comment B-Type Natriuretic Peptide 20 PG/ML Triglycerides Level 104 MG/DL Cholesterol Level 158 MG/DL LDL Cholesterol 105 MG/DL HDL Cholesterol 31.9 MG/DL Cholesterol/HDL Ratio 4.95 RATIO Assessment and Plan Assessment and Plan #1 Chest pain-Discussed in length patients plans and any concerns of having cardiac catheterization. Encouraged him to make a decision regarding cardiac authorization procedure can be done later this afternoon. Discussed with Dr. Martin. Continue with plan to consult hospitalist. Patricia Giles November 20, 2017 12:27
--- NOTE | 2017-11-20 14:04 | EKG ---
Date Performed: 11/20/2017 Time Performed: 02:12:24 PTAGE: 72 years EKG: Sinus rhythm LEFT ANTERIOR FASCICULAR BLOCK ABNORMAL ECG PREVIOUS TRACING : 11/19/2017 20.55 Since previous tracing, no significant change noted DOCTOR: Deion Martin Interpretating Date/Time 11/20/2017 14:03:58
--- NOTE | 2017-11-20 14:04 | EKG ---
Date Performed: 11/20/2017 Time Performed: 05:42:10 PTAGE: 72 years EKG: NORMAL Sinus rhythm WITH PAC'S PATTERN CONSISTENT WITH PULMONARY DISEASE LEFT ANTERIOR FASCICULAR BLOCK ABNORMAL ECG PREVIOUS TRACING : 11/20/2017 02.12 Since previous tracing, no significant change noted DOCTOR: Deion Martin Interpretating Date/Time 11/20/2017 14:03:38
[2017-11-21] VITALS (11 sets, daily range): BP systolic 119–149; BP diastolic 56–83; PULSE 56–100; RESP 18–22; TEMP 97.4–98.3; O2SAT 60–100
[2017-11-21] MEDS: INSULIN ASPART SUPPLEMENTAL SCALE SQ SCH ×4 (08:31→20:04)
[2017-11-21] MEDS: ATORVASTATIN 40 MG TAB PO SCH (08:33)
[2017-11-21] MEDS: amLODIPine BESYLATE 5 MG TAB PO SCH (08:33)
[2017-11-21] MEDS: SODIUM CHLORIDE 0.9% FLUSH 10 ML FLUSH IV FLUSH SCH ×2 (08:34→20:01)
[2017-11-21] MEDS: LISINOPRIL 20 MG TAB PO SCH ×2 (08:34→20:01)
--- NOTE | 2017-11-21 08:35 | EKG ---
Date Performed: 11/19/2017 Time Performed: 20:55:55 PTAGE: 72 years EKG: SINUS TACHYCARDIA WITH SHORT FL INTERVAL INFERIOR MYOCARDIAL INFARCTION ANTEROSEPTAL MYOCAR DIAL INFARCTION ABNORMAL ECG PREVIOUS TRACING : 05/31/2017 18.25 DOCTOR: Keira Mullins Interpretating Date/Time 11/21/2017 08:32:32
[2017-11-21] MEDS: ASPIRIN EC 81 MG TABEC PO SCH (08:36)
[2017-11-21] MEDS: CARVEDILOL 12.5 MG TAB PO SCH ×2 (08:36→20:01)
[2017-11-21] MEDS ORDERED: RESP: ALBUTEROL 2.5 MG/IPRATROPIUM 0.5 MG NEB (PRN) NEB (09:30)
--- NOTE | 2017-11-21 09:37 | HHI.PR ---
Subjective Remarks Follow-up atypical chest pain November 21, 2017-patient seen and examined, denies any chest pain or shortness of breath at this point. States he is now willing to do left heart catheterization Objective Vitals Vital Signs Date Time Temp Pulse Resp B/P (MAP) Pulse Ox O2 Delivery O2 Flow Rate FiO2 11/21/17 08:30 97.4 59 22 146/83 (104) 99 11/21/17 07:42 94 21 11/21/17 03:15 98.1 63 18 119/56 (77) 96 11/21/17 03:05 58 11/20/17 23:55 15 11/20/17 23:11 98.0 65 18 112/55 (74) 93 11/20/17 19:52 98 21 11/20/17 19:48 98.0 66 18 140/73 (95) 97 11/20/17 15:15 76 11/20/17 12:20 97.8 71 17 138/77 (97) 98 11/20/17 09:46 73 17 142/60 (87) 96 Room Air Result Diagram: 11/19/17 2103 11/19/17 2100 Imaging Last Impressions Chest X-Ray 11/19/17 0000 Signed Impressions: Service Date/Time: November 21:10 - CONCLUSION: Stable left basilar density likely scarring. Wu Lozano MD Objective Remarks GENERAL: NAD SKIN: Warm and dry. HEAD: Normocephalic. EYES: No scleral icterus. No injection or drainage. NECK: Supple, trachea midline. No JVD or lymphadenopathy. CARDIOVASCULAR: Regular rate and rhythm without murmurs, gallops, or rubs. RESPIRATORY: Breath sounds equal bilaterally. No accessory muscle use. GASTROINTESTINAL: Abdomen soft, non-tender, nondistended. MUSCULOSKELETAL: No cyanosis, or edema. BACK: Nontender without obvious deformity. No CVA tenderness. A/P Problem List: (1) Hyperlipidemia ICD Code: E78.5 - Hyperlipidemia, unspecified (2) Diabetes mellitus, type 2 ICD Code: E11.9 - Type 2 diabetes mellitus without complications (3) Atypical chest pain ICD Code: R07.89 - Other chest pain Assessment and Plan 72-year-old man with Atypical chest Patient was seen and evaluated by cardiology on November 20, 2017 and was offered left heart catheterization, however at the time patient declined.. States now he is willing to undergo left heart catheterization Currently on aspirin 162 mg daily, Lipitor 40 mg at bedtime, lisinopril, Coreg 25 mg daily Check 2D echo Hypertension Continue Coreg and lisinopril Hyperlipidemia On lisinopril Diabetes type 2 Check hemoglobin A1c Continue sliding scale Start basal insulin Wu Santa MD November 21, 2017 09:37
[2017-11-21] MEDS ORDERED: DIAZEPAM 5 MG TAB PO SCH (12:15)
[2017-11-21] MEDS ORDERED: diphenhydrAMINE HCL 50 MG CAP PO SCH (12:15)
[2017-11-21] MEDS: SODIUM CHLOR 0.9% 1000 ML INJ 1,000 ML IV SCH ×2 (13:20→20:10)
[2017-11-21] MEDS ORDERED: HEPARIN SODIUM - IV 10,000 UNITS/10 ML VIAL ONE (15:15)
[2017-11-21] MEDS ORDERED: VERAPAMIL HCL 5 MG/2 ML VIAL ONE (15:15)
[2017-11-21] MEDS ORDERED: MIDAZOLAM HCL 2 MG/2 ML VIAL ONE ×2 (15:15→17:17)
[2017-11-21] MEDS ORDERED: HEPARIN-NS/PF FLUSH BAG 2,000 ML IV FLUSH ONE (15:15)
[2017-11-21] MEDS ORDERED: NITROGLYCERIN INJ 5 ML ONE (16:47)
--- NOTE | 2017-11-21 17:55 | CATHPROC ---
[facility] HIS Report Study Information Study Number Admission Scheduled Start Study Start [id number] Nov 20 2017 12:58AM 11/21/2017 Nov 21 2017 3:31PM [facility] Cardiac Catheterization Admit Source Facility Department Emergency department [facility] - Rides Supervisor Physician and Clinical Staff Initial Aaron Herrera Internal Control Manager Jess Garcia,RN Internal Control Manager Matteo Alvarez,RN Recorder Shayy Mendoza,(R) (BS) Scrub Shayy Mendoza RT(R) (BS) Procedures Performed Procedure Location (Site) Vessel Name Angiogram LV LV Ventricle Coronary Angiograms LCA Left Coronary Coronary Angiograms RCA Right Coronary L Heart Cath Wire insertion Radial (right) Radial Art. Equipment Time Scanning Clerk Description Size Mfg Part Number Used/Scraped TRANSDUCER, TRUWAVE [id number] 15:35 [employer] * Used W/STOCKCOCK *[id number] *[id number] [id number] *[id number] 15:35 MALLINCKRODT SYRINGE, ANGIOMAT 150ML 150ML *[id number] Used 2SUB [id number] 15:35 [employer] IND[employer]RIES PACK, CCL CUSTOM * Used *[id number] 15:35 [employer] SUPPORT, ARTERIAL ADULT 62770 *[id number] Used [id number] 15:35 [employer] PACER PEN, SKIN DUAL W/ RULER * Used *[id number] BAND, RADIAL COMPRESSION TR [id number] 17:29 [employer] MEDICAL 29CM Used LARGE 29 *[id number] 15:35 [employer] MEDICAL WIRE, EXCHANGE 260CM 3MMJ 260CM Used *[id number] 15:35 NAMIC MANIFOLD, 4 PORT * Used *[id number] 17:37 NAM[employer] TUBING, HIGH PRESSURE 20" 20" Used *[id number] 15:35 [employer] OMNIPAQUE, 350 MG, 100ML 100ML [id number] Used [id number] 15:35 [employer] MEDICAL BLANKET,WARM AIR CCL * Used *[id number] 15:35 [employer] JELCO NEEDLE 4056 *[id number] Used CATHETER, FR5 OPTITORQUE [id number] 17:00 [employer] MEDICAL FR 5 Used RADIAL TIG 4.0 *[id number] CATHETER, FR5 OPTITORQUE [id number] 17:16 [employer] MEDICAL FR 5 Used RADIAL TIG 4.0 *[id number] SHEATH, FR6 TRANSRADIAL RM*[id number] 15:35 [employer] FR 6 Used SLENDER 10CM *[id number] History: Current Medications Medication Dosage/Unit Route Frequency Last Date/Time Taken CARVEDILOL Glucophage LISINOPRIL History: Allergies Allergy Reaction nitroglycerin History: Risk Factors Family History of Hypertension Dyslipidemia Previous CO Previous Heart Failure Premature CAD Yes Yes Yes No No Prior Valve Prior PCI Prior CABG Surgery No No No Cerebrovascular Peripheral Artery Chronic Lung On Dialysis Diabetes Diabetes Therapy Disease Disease Disease No No No No Yes Oral History: Symptoms/Diagnosis Selection Items Chest pain History: Stress Tests Stress or Imaging Studies Performed No History: Other Disease Selection Items HTN History: Other Current Smoker No Labs Hgb (g/dl) Hct (%) RBC (MIL/MM3) WBC (l/cumm) Platelets (thousands) 11.60-17.00 35.00-51.00 4.00-5.90 4.00-11.00 150.00-450.00 14.6 42.2 4.9 6.1 148 Glucose (mg/dl) BUN (mg/dl) Creatinine (mg/dl) BUN:Creatinine (1:x) 74.00-106.00 7.00-18.00 0.50-1.30 10.00-20.00 208 18 1.3 13.8 Na (meq/l) K (meq/l) Cl (meq/l) CO2 (mmol/L) Ca (mg/dl) 136.00-145.00 3.50-5.10 98.00-107.00 21.00-32.00 8.50-10.10 138 3.9 102 25.6 9 PT (sec) PTT (sec) INR (PTT:PT) 9.80-11.60 24.30-30.10 0.90-1.10 10.5 26.4 1 Troponin I (ng/ml) CPK (u/l) CPK-MB (ng/ML) 0.02-0.05 26.00-308.00 0.50-3.60 0.02 26 Not Drawn Medication Medication Total Dose (Bolus/Oral) Medication Total Dosage/Unit 1% XYLOCAINE 20 mL FENTANYL 50 mcg RADIAL COCKTAIL 5 mL (Bolus) VERSED 3 mg Medications (Bolus/Oral) Medication Time Given Dosage/Unit Administered By Reason VERSED 11/21/2017 5:15:55 PM 2 mg Jess Garcia 2 mg VERSED given in lab by Jess Garcia, TYRONE in Left Antecubital via Peripheral IV. 1% XYLOCAINE 11/21/2017 5:17:26 PM 20 mL Aaron Bolton 20 mL 1% XYLOCAINE given in lab by Aaron Bolton in Right Radial via Subcutaneous. VERSED 11/21/2017 5:18:10 PM 1 mg Jess Garcia 1 mg VERSED given in lab by Jess Garcia, TYRONE via Peripheral IV. Ntg 200mcg Verapamil 2.5mg Heparin RADIAL COCKTAIL 11/21/2017 5:18:42 PM 5 mL (Bolus) Aaron Bolton 2500U 5 mL (Bolus) RADIAL COCKTAIL given in lab by Aaron Bolton via Radial. Using [Solution Name]. Reason: Ntg 200mcg Verapamil 2.5mg Heparin 2500U. FENTANYL 11/21/2017 5:26:21 PM 50 mcg Jess Garcia 50 mcg FENTANYL given in lab by Jess Garcia, TYRONE via Peripheral IV. Medication (Drip) Medication Time Given Dosage/Unit Concentration/Unit Diluent (ml) Solution IV Solutions 11/21/2017 4:23:56 PM 0 mL (IV) NaCl .9 Patient arrived on IV Solutions in Left Antecubital via Peripheral IV. Pump/Drip Flow = 30 ml/hr usin g NaCl .9. Initial Case Assessment Cardiovascular HR Rhythm NIBP Chest Pain 58 reg 171/96 0 Edema Present Skin color Skin None Normal Warm Circulatory - Right Pulses Dorsalis Pedis Femoral Radial d 1 2 Scale (0,1,2,3,4,d) Scale (0,1,2,3,4,d) Circulatory - Lower Extremities Color Lower Right Color Lower Left Normal Normal Neurological State Oriented to time-place- Alert Moves all extremities person Respiration - General Respiration Rate SpO2 (%) (B/min) 9 97 Final Case Assessment Cardiovascular HR Rhythm NIBP Chest Pain 61 reg 170/93 0 Edema Present Skin color Skin None Normal Warm Circulatory - Right Pulses Dorsalis Pedis Femoral Radial d 1 2 Scale (0,1,2,3,4,d) Scale (0,1,2,3,4,d) Circulatory - Lower Extremities Color Lower Right Normal Neurological State Oriented to time-place- Alert Moves all extremities person Respiration - General Respiration Rate SpO2 (%) (B/min) 6 95 Chronological Log Time Study Chronological Log 16:21:27 Patient arrived via Bed. 16:21:31 Patient Name, D.O.B, / Armband Verified By R.N. 16:23:33 Consent signed by the physician and the patient and verified by the Rides Supervisor staff. 16:23:33 Pre-op and post- op instructions given; patient acknowledges understanding of instructions. 16:23:34 Verbal Stimulation=2 Physical Stimulation=2 Airway=2 Respiration=2 TOTAL=8. (0=absent, 1=li mited, 2=present) 16:23:36 Presedation assessment performed by Rides Supervisor RN. 16:23:38 Allens test performed on the right radial and ulnar artery with a positive result by Alexia sprague 16:23:47 Patient has been NPO for More than 6Hrs. 16:23:49 Skin Breakdown-skin breakdown and redness in bilateral groins. 16:23:49 Patient Warmer Placed on the Table. 16:23:55 A # 20 IV was noted in the Antecubital (left). Grade = 0 16:23:56 Patient arrived on IV Solutions in Left Antecubital via Peripheral IV. Pump/Drip Flow = 30 ml/hr using NaCl .9. 16:23:57 History and physical on the chart or being dictated. Assessment: Initial Case, HR=58 BPM, Rhythm=reg, HENX=824/96 mmhg, Chest Pain=0, Edema=None, Co kory=Normal, Skin = Warm Right Pulses: Soren Ped=d, Femoral=1, Radial=2 16:23:59 Lower Right Extremities: Color=Normal Lower Left Extremities: Color=Normal Neurological: State=Alert, Ox3, ARTEAGA Respiration: Resp=9 B/min, SpO2=97 % Vitals capture started with the following parameters, Patient=Adult, Interval=5 min, Initial Pr vcufgz=903 mmHg, 16:28:22 Deflation Rate=5 mmHg, Cuff placed on Left Arm 16:29:28 PQUP=741/99 mmhg, SpO2=98 %, Resp=18 B/min, Pain=0, Kb=10, Goodman=2 16:34:09 VVFY=681/93 mmhg, SpO2=96.0 %, Resp=6 B/min, Pain=0, Kb=10, Goodman=2 16:39:04 HR=60 bpm, LTQZ=304/103 mmhg, SpO2=98.0 %, Resp=2 B/min, Pain=0, Kb=10, Goodman=2 16:44:05 HR=61 bpm, HJMS=685/102 mmhg, SpO2=98.0 %, Resp=6 B/min, Pain=0, Kb=10, Goodman=2 16:49:06 HR=61 bpm, FUQA=318/92 mmhg, SpO2=97.0 %, Resp=6 B/min, Pain=0, Kb=10, Goodman=2 16:54:07 HR=59 bpm, TNSF=669/97 mmhg, SpO2=98.0 %, Resp=20 B/min, Pain=0, Kb=10, Goodman=2 16:54:31 Reference ECG taken 16:59:06 HR=58 bpm, UDDM=905/89 mmhg, SpO2=98.0 %, Resp=11 B/min, Pain=0, Kb=10, Goodman=2 17:04:50 HR=59 bpm, VSET=950/98 mmhg, SpO2=97.0 %, Resp=21 B/min, Pain=0, Kb=10, Goodman=2 17:07:05 MD paged 17:08:50 Bilateral groins prepped with 2% chlorhexidine, and draped after a 3 minute waiting time. 17:09:02 HR=57 bpm, XYGN=072/96 mmhg, SpO2=98.0 %, Resp=21 B/min, Pain=0, Kb=10, Goodman=2 17:10:26 Pressure channel 1 zero failed. 17:10:37 Pressure channel 1 zeroed. 17:11:31 MD arrived. 17:14:46 HR=58 bpm, AEQS=023/97 mmhg, SpO2=98.0 %, Resp=8 B/min, Pain=0, Kb=10, Goodman=2 Time Out. Correct patient, correct procedure, correct physician, power injector loaded, or not loaded with contrast with 17:15:53 surgical team present. Time Out Concurred by MD and individual staff in procedure. 17:15:55 2 mg VERSED given in lab by Jess Garcia, TYRONE in Left Antecubital via Peripheral IV. 17:16:06 Case Start 17:17:18 Verbal Stimulation=2 Physical Stimulation=2 Airway=2 Respiration=2 TOTAL=8. (0=absent, 1=li mited, 2=present) 17:17:26 20 mL 1% XYLOCAINE given in lab by Aaron Bolton in Right Radial via Subcutaneous. 17:18:02 Access site was [email or web address] 17:18:10 1 mg VERSED given in lab by Jess Garcia, RN via Peripheral IV. 17:18:22 A wire was inserted via Radial (right). A SHEATH, FR6 TRANSRADIAL SLENDER 10CM FR 6 was advanced into the Radial (right) using the Perc utaneous 17:18:31 technique. 5 mL (Bolus) RADIAL COCKTAIL given in lab by Aaron Bolton via Radial. Using [Solution Name]. R adonay: Ntg 200mcg 17:18:42 Verapamil 2.5mg Heparin 2500U. 17:19:08 HR=64 bpm, VQGY=809/107 mmhg, SpO2=97.0 %, Resp=9 B/min, Pain=0, Kb=10, Goodman=2 A CATHETER, FR5 OPTITORQUE RADIAL TIG 4.0 FR 5 was advanced over a wire. OMNIPAQUE, 350 MG, 100 ML 100ML 17:20:24 was used for injections. Recorded Pressure: Ao, HR=65, Condition=Condition 1 17:22:42 (Aorta) Ao 135/81/106 17:24:11 HR=62 bpm, WWEX=682/83 mmhg, SpO2=94.0 %, Resp=5 B/min, Pain=0, Kb=10, Goodman=2 17:24:20 The RCA was injected and visualized at various angles. OMNIPAQUE, 350 MG, 100ML 100ML used . 17:26:21 50 mcg FENTANYL given in lab by Jess Garcia, TYRONE via Peripheral IV. 17:29:02 HR=68 bpm, FUKS=915/94 mmhg, SpO2=90.0 %, Resp=11 B/min, Pain=0, Kb=10, Goodman=2 17:29:20 The LCA was injected and visualized at various angles. OMNIPAQUE, 350 MG, 100ML 100ML used . 17:31:20 Catheter was removed A JL 3.5 INFINITI CATHETER FR 5 was advanced over a wire. OMNIPAQUE, 350 MG, 100ML 100ML was us ed for 17:32:23 injections. 17:34:07 HR=64 bpm, ZTQR=699/94 mmhg, SpO2=93.0 %, Resp=7 B/min, Pain=0, Kb=10, Goodman=2 17:35:38 Catheter was removed A PIGTAIL ANG. INFINITI CATHETER FR 5 was advanced over a wire. OMNIPAQUE, 350 MG, 100ML 100ML was used 17:36:04 for injections. 17:39:08 HR=62 bpm, KJSB=853/88 mmhg, SpO2=92.0 %, Resp=11 B/min, Pain=0, Kb=10, Goodman=2 Recorded Pressure: LV, HR=60, Condition=Condition 1 17:41:19 (Left Ventricle) LV 149/8/16 17:41:50 The LV was injected at 10 cc/sec for a total of 40. OMNIPAQUE, 350 MG, 100ML 100ML used. Recorded Pressure: LV, Ao, HR=63, Condition=Condition 1 17:42:57 (Left Ventricle) LV 146/8/15, (Aorta) Ao 150/76/107 17:43:39 Catheter was removed 17:43:45 Case End Assessment: Final Case, HR=61 BPM, Rhythm=reg, FQXA=027/93 mmhg, Chest Pain=0, Edema=None, Col or=Normal, Skin = Warm Right Pulses: Soren Ped=d, Femoral=1, Radial=2 17:43:52 Lower Right Extremities: Color=Normal Neurological: State=Alert, Ox3, ARTEAGA Respiration: Resp=6 B/min, SpO2=95 % 17:44:42 HR=61 bpm, IIMR=880/93 mmhg, SpO2=97.0 %, Resp=13 B/min, Pain=0, Kb=10, Goodman=2 17:45:19 Catheter(s) removed without difficulty Radial Compression Device Used. 13 mLs of air placed in BAND, RADIAL COMPRESSION TR LARGE 29 2 9CM. Affected 17:45:22 hand 98 % O2 saturation. 17:45:36 Sterile dressing applied to site 17:45:37 No case complications noted. 17:45:38 Cine recording checked. 17:45:44 Bedside Report will be given. 17:45:51 A Left Heart Cath was performed. 17:45:53 Clinical correlaton risk stratification. 17:49:08 HR=60 bpm, VXLI=241/98 mmhg, SpO2=96.0 %, Resp=9 B/min, Pain=0, Kb=10, Goodman=2 17:50:39 Vitals capture stopped. End Study - Contrast Media Used In Study Contrast Total Opened (mL) Total Used (mL) Total Wasted (mL) Omnipaque 120 120 0 End Study - Maximum Contrast Load Max Contrast Load (mL) 569.2 End Study - Radiation Exposure Fluoro Time (minutes) 11.0 End Study - Sheaths Sheaths Pulled By Sheath Hold Time (min) Shayy Mendoza End Study - Patient Disposition Complications Transferred To No Regular Bed
[2017-11-21] MEDS ORDERED: SODIUM CHLORIDE 0.9% FLUSH 10 ML FLUSH IV FLUSH PRN (18:00)
--- NOTE | 2017-11-21 19:55 | MA ---
cc: Aaron Bolton MD, Vance E MD DATE: 11/21/2017 PROCEDURE PERFORMED: Left heart catheterization, left ventriculography, coronary angiography, right radial arterial approach. BRIEF HISTORY: Sloan Plata is a 72-year-old man who presented to the ER with chest pain. He has had a nuclear stress test at [facility] showing mild anterolateral ischemia. For that reason, he was admitted and I was consulted for consideration of cardiac catheterization. The patient initially refused catheterization, but then today said that he wanted to have one. DESCRIPTION OF PROCEDURE: The patient was brought to the cardiac catheterization lab in a fasting state. He was sedated with a total of 3 mg of IV Versed. The leg and wrist were prepped and draped in sterile fashion using 1% lidocaine for local anesthesia. A Terumo slender sheath was inserted in the right radial artery without difficulty. Next, coronary angiography was completed using a Carville catheter. LV pressure was measured using angled pigtail catheter followed by left ventriculography and then a pullback. At the end of the procedure, the sheath was removed with a Terumo band placed. There were no complications. HEMODYNAMICS: Left ventricular pressure is 146/8 with an end diastolic pressure of 15. Aortic pressure is 150/76 with a mean of 107. There was no gradient during pullback from the left ventricle to the aorta. LEFT VENTRICULOGRAPHY: Left ventriculography shows normal left ventricular function. EF is about 60%. The aortic root and aorta are mildly enlarged. CORONARY ANGIOGRAPHY: The patient has large coronary arteries. Left main coronary artery appears normal. The LAD, ramus and circumflex arteries are large and appear normal with the exception of about a 25% smooth mid LAD narrowing by a second septal. The right coronary artery is dominant and tortuous and demonstrates ectasia in the proximal to mid segment, but no stenosis. CONCLUSION: Suspect chest pain is noncardiac in origin. He has hypertension. Amlodipine has already been added. Recommend that that be continued. The patient can be discharged home first thing tomorrow morning. MD KAROL Dumont/ , 05:53 PM , 07:54 PM
[2017-11-22] VITALS (16 sets, daily range): BP systolic 120–132; BP diastolic 64–78; PULSE 55–97; RESP 18; TEMP 97.5–98.4; O2SAT 96–98
[2017-11-22] MEDS: SODIUM CHLOR 0.9% 1000 ML INJ 1,000 ML IV SCH (09:18)
[2017-11-22] MEDS: INSULIN ASPART SUPPLEMENTAL SCALE SQ SCH ×2 (09:18→12:42)
[2017-11-22] MEDS: SODIUM CHLORIDE 0.9% FLUSH 10 ML FLUSH IV FLUSH SCH (09:18)
[2017-11-22] MEDS: ASPIRIN EC 81 MG TABEC PO SCH (09:20)
[2017-11-22] MEDS: LISINOPRIL 20 MG TAB PO SCH (09:20)
[2017-11-22] MEDS: CARVEDILOL 12.5 MG TAB PO SCH (09:20)
[2017-11-22] MEDS: ATORVASTATIN 40 MG TAB PO SCH (09:21)
[2017-11-22] MEDS: amLODIPine BESYLATE 5 MG TAB PO SCH (09:22)
[2017-11-22] MEDS ORDERED: OMEP20TA93 PO (10:02)
[2017-11-22] MEDS ORDERED: AMLO5 PO (10:44)
--- NOTE | 2017-11-22 11:25 | HHI.PR ---
Subjective Remarks She says he is feeling well. No chest pain or shortness of breath. Would like to go home. Has follow-up scheduled with PCP Objective Vital Signs Date Time Temp Pulse Resp B/P (MAP) Pulse Ox O2 Delivery O2 Flow Rate FiO2 11/22/17 09:00 76 11/22/17 08:37 97.5 97 18 132/72 (92) 97 11/22/17 08:37 Room Air 11/22/17 08:00 60 11/22/17 07:00 63 11/22/17 06:00 62 11/22/17 05:00 66 11/22/17 04:00 98.1 75 18 131/78 (95) 97 11/22/17 04:00 75 11/22/17 03:00 67 11/22/17 02:00 59 11/22/17 01:00 55 11/22/17 00:00 57 11/22/17 00:00 Room Air 11/22/17 00:00 98.4 57 18 127/64 (85) 96 11/21/17 23:00 56 11/21/17 22:00 58 11/21/17 21:00 64 11/21/17 20:00 63 11/21/17 20:00 98.3 63 20 146/80 (102) 97 11/21/17 18:15 97.6 100 20 145/81 (102) 60 11/21/17 12:12 97.4 62 22 149/79 (102) 100 I/O 11/21/17 11/21/17 11/21/17 11/22/17 11/22/17 11/22/17 07:00 15:00 23:00 07:00 15:00 23:00 Intake Total 240 ml 480 ml Output Total 800 ml Balance 240 ml -320 ml Intake Oral 240 ml 480 ml Output Urine Total 800 ml # Voids 4 # Bowel Movements 0 Result Diagram: 11/19/17 2103 11/19/17 2100 Objective Remarks GENERAL: Patient sitting up in bed. Appears comfortable. Alert and oriented 3. SKIN: Warm and dry. HEAD: Normocephalic. EYES: No scleral icterus. No injection or drainage. NECK: Supple, trachea midline. No JVD . CARDIOVASCULAR: Regular rate and rhythm without murmurs, gallops, or rubs. RESPIRATORY: Breath sounds equal bilaterally. No accessory muscle use. GASTROINTESTINAL: Abdomen soft, non-tender, nondistended. MUSCULOSKELETAL: No cyanosis, or edema. BACK: Nontender without obvious deformity. No CVA tenderness. A/P Assessment and Plan 72-year-old man with //Atypical chest pain Patient was seen and evaluated by cardiology on November 20, 2017 and was offered left heart catheterization, however at the time patient declined.. States now he is willing to undergo left heart catheterization Currently on aspirin 162 mg daily, Lipitor 40 mg at bedtime, lisinopril, Coreg 25 mg daily Check 2D echo //Hypertension Continue Coreg and lisinopril //Hyperlipidemia On lisinopril //Diabetes type 2 Check hemoglobin A1c Continue sliding scale Start basal insulin Zachary Pelletier MD November 22, 2017 11:24
[2017-11-22] MEDS ORDERED: GLIP5TAB8 PO (11:26)
--- NOTE | 2017-11-22 11:29 | HHI.DS ---
Discharge Summary Admission Date November 20, 2017 at 00:58 Discharge Date: November 22, 2017 Admitting Diagnosis chest pain; h/o cad (1) Hyperlipidemia ICD Code: E78.5 - Hyperlipidemia, unspecified (2) Diabetes mellitus, type 2 ICD Code: E11.9 - Type 2 diabetes mellitus without complications (3) Atypical chest pain ICD Code: R07.89 - Other chest pain Procedures Cardiac catheterization. Please see report. Brief History - From Admission 72-year-old male with history of coronary artery disease, type 2 diabetes and hypertension presents the emergency room for further evaluation of chest pain. Onset "last evening" unable to give approximate time. Location left anterior chest. Characterized as sharp pain. No radiation. Duration 10-15 minutes. No associated symptoms of nausea, vomiting, dyspnea, or diaphoresis. No known precipitating or relieving factors. Endorses similar pain in the past, reporting a hospitalization at [facility] and had multiple "pictures taking" last month. Unable to provide details of recent hospitalization, reports being discharged on a "white pill." Apparently given the option of "having surgery or taking an additional medication." Unable to recall what type of surgery or why he needed the recommended surgery. No current chest pain. Record release form signed during evening shift, no records yet received. CBC/BMP: 11/19/17 2103 11/19/17 2100 Significant Findings Laboratory Tests Test 11/19/17 21:00 11/19/17 21:03 11/20/17 02:10 11/20/17 05:45 Random Glucose 208 MG/DL (74-106) Albumin 3.3 GM/DL (3.4-5.0) Alkaline Phosphatase 139 U/L (45-117) Estimat Glomerular Filtration Rate 56 ML/MIN (>89) Total Creatine Kinase 38 U/L (39-308) 33 U/L (39-308) 26 U/L (39-308) Troponin I LESS THAN 0.02 NG/ML LESS THAN 0.02 NG/ML LESS THAN 0.02 NG/ML Platelet Count 148 TH/MM3 (150-450) Monocytes (%) (Auto) 9.6 % (0.0-8.0) LDL Cholesterol 105 MG/DL (0-99) HDL Cholesterol 31.9 MG/DL (40.0-60.0) Test 11/22/17 06:25 PE at Discharge GENERAL: NAD SKIN: Warm and dry. HEAD: Normocephalic. EYES: No scleral icterus. No injection or drainage. NECK: Supple, trachea midline. No JVD or lymphadenopathy. CARDIOVASCULAR: Regular rate and rhythm without murmurs, gallops, or rubs. RESPIRATORY: Breath sounds equal bilaterally. No accessory muscle use. GASTROINTESTINAL: Abdomen soft, non-tender, nondistended. MUSCULOSKELETAL: No cyanosis, or edema. BACK: Nontender without obvious deformity. No CVA tenderness. Hospital Course Patient presented with very short-lived chest pain which was resolved prior to admission. Patient continued asymptomatic. EKGs and troponins negative for indication of ischemic event. Patient underwent cardiac catheterization without significant coronary artery disease. Patient was cleared by cardiology for discharge. Patient was found to be hyperglycemic in the 200s. Will start on glipizide in addition to home metformin. A1c is pending at time of discharge. Echocardiogram pending at time of discharge. Follow with primary care as outpatient. 72-year-old man with //Atypical chest pain Patient was seen and evaluated by cardiology on November 20, 2017 and was offered left heart catheterization, however at the time patient declined.. States now he is willing to undergo left heart catheterization Currently on aspirin 162 mg daily, Lipitor 40 mg at bedtime, lisinopril, Coreg 25 mg daily Check 2D echo, pending = Patient cleared by cardiology for discharge. //Hypertension Continue Coreg and lisinopril //Hyperlipidemia On lisinopril //Diabetes type 2 Check hemoglobin A1c Continue sliding scale Glucose elevated in the 200s. Will start on glipizide. A1c pending. Follow with primary care. Pt Condition on Discharge: Good Discharge Disposition: Discharge Home Discharge Time: > 30 minutes Discharge Instructions DIET: Follow Instructions for: Heart Healthy Diet Activities you can perform: Regular-No Restrictions Follow up Referrals: PCP Follow-up - 1 Week New Medications: Glipizide (Glipizide) 5 Mg Tab 5 MG PO BIDAC for Blood Sugar Management, #60 TAB 0 Refills Take 30 minutes before a meal Omeprazole (Omeprazole) 20 Mg Tab 20 MG PO DAILY for GERD, #30 TAB 0 Refills Amlodipine (Norvasc) 5 Mg Tab 5 MG PO DAILY for Blood Pressure Management for 30 Days, #30 TAB Continued Medications: Carvedilol (Carvedilol) 25 Mg Tab 25 MG PO BID, #60 TAB 0 Refills Cholecalciferol (Vitamin D) 2,000 Unit Cap 5000 UNITS PO DAILY, CAP Colchicine (Colchicine) 0.6 Mg Cap 0.6 MG PO BID for Gout, CAP [address] (Duloxetine DR) 30 Mg Capdr 30 MG PO DAILY, #30 CAP 0 Refills Gabapentin (Gabapentin) 300 Mg Cap 300 MG PO TID, #90 CAP 0 Refills Linagliptin (Tradjenta) 5 Mg Tab 5 MG PO DAILY for Blood Sugar Management, #30 TAB 0 Refills Lisinopril (Lisinopril) 20 Mg Tab 20 MG PO BID, #30 TAB 0 Refills Metformin (Metformin) 1,000 Mg Tab 1000 MG PO BIDPC for Blood Sugar Management, #60 TAB 0 Refills Zachary Pelletier MD November 22, 2017 11:29
[2017-11-22] MEDS ORDERED: IOHEXOL 350 MG/ML 100 ML BTL (for Cath Lab) OTHER ONE (17:59)
[2017-11-22] MEDS ORDERED: IOHEXOL 350 MG/ML 50 ML BTL (for Cath Lab) OTHER ONE (17:59)
== END 2017-11-22 18:00 | disposition home or self-care (01) ==
LOC: NEPC 20:28 → NEDA 11-20 00:58 → NEDH 11-20 06:33 → NEPHCDU 11-20 12:49 → HCIS 11-21 17:37
PROVIDERS: ADMIT Internal Medicine; ATTEND Internal Medicine
DX: I25.10 Atherosclerotic heart disease of native coronary artery without angina pectoris (principal); I10 Essential (primary) hypertension; E78.5 Hyperlipidemia, unspecified; E11.65 Type 2 diabetes mellitus with hyperglycemia; E66.01 Morbid (severe) obesity due to excess calories; I21.9 Acute myocardial infarction, unspecified; Z79.82 Long term (current) use of aspirin; Z79.84 Long term (current) use of oral hypoglycemic drugs; Z79.899 Other long term (current) drug therapy; Z95.5 Presence of coronary angioplasty implant and graft; Z68.42 Body mass index [BMI] 45.0-49.9, adult
CPT/HCPCS: 71045; 80053; 80061; 82550; 82948; 83036; 83605; 83735; 83880; 84484; 85025; 85379; 85610; 85730; 87040; 93005; 93458; 96361; 96372; 96374; 96376; 99152; 99153; 99285; C1769; C1893; G0378; J1644; J1815; J1885; J2250; J3010; J7030; Q0163; Q9967